=== PATIENT | male | born 1985 | race Two or more races ===

== ENCOUNTER 2022-10-12 23:45 | Emergency (ER) | payer MEDICAID, OTHER ==
[~2022-10-12] VITALS: Ht 190.5 cm; Wt 75.0 kg
[2022-10-13 00:42] VITALS: BP 126/80
[2022-10-13] MEDS ORDERED: OXYCODONE W/ ACETAMINOPHEN 5/325MG TABLET PO ONE (01:00)
[2022-10-13] MEDS ORDERED: TETANUS-DIPTH-ACEL PERTUSSIS 0.5ML SYR Tdap IM ONE (01:00)
[2022-10-13] MEDS ORDERED: CEPH500C PO (01:43)
== END 2022-10-13 01:43 | disposition home or self-care (01) ==
LOC: ER 23:45
DX: S61.301A Unspecified open wound of left index finger with damage to nail, initial encounter (principal); X58.XXXA Exposure to other specified factors, initial encounter; Y93.89 Activity, other specified; Y92.89 Other specified places as the place of occurrence of the external cause; Y99.8 Other external cause status
CPT/HCPCS: 73130; 90471; 90715